=== PATIENT | female | born 1990 | race Caucasian/White ===

== ENCOUNTER 2016-07-21 00:22 | Outpatient (CLI) | payer MEDICAID ==
[~2016-07-21] VITALS: Ht 152.4 cm; Wt 66.7 kg
--- NOTE | 2016-07-21 00:51 | PN ---
Date/Time of Note Date/Time of Note DATE: 07/21/16 TIME: 00:49 OB Subjective Subjective Subjective patient c/o ctx; no LOF, no VB, good FM OB Objective Objective Objective Nml VS Abdomen- gravid, n/t FHT- + accel, no decel, mod sumit [place]- irreg ctx Abdomen: WNL Cervical Dilatation: 1cm Effacement: 50% Station: -3 Membranes: Intact Accelerations: Accelerations Present Decelerations: No Decelerations Varibility: Moderate Contractions on Admission: 6-10 Minutes Apart Intensity: Mild OB Assessment/Plan Other Assessment: 26 yo P2001 @ 39 wks, r/o labor -reassuring status -not in labor Other plan: After NST, d/c home w labor precautions CATY VAZQUEZ MD Jul 21, 2016 00:51
[2016-07-21 00:57] VITALS: Ht 152.4 cm; Wt 66.7 kg
[2016-07-21] MEDS ORDERED: FERR325C PO (00:59)
[2016-07-21] MEDS ORDERED: CALC600T5 PO (00:59)
[2016-07-21] MEDS ORDERED: PREN1TAB62 PO (00:59)
--- NOTE | 2016-07-21 01:32 | TRIAGE ---
OB Triage Datetime Report Generated by CPN: 07/21/2016 01:32 Datetime: 07/21/2016 01:00 Labor Evaluation Frequency: OCC Monitor Mode: Palpation Monitor Mode: External Duration (sec)2399: 60-80 Pattern: Normal: <= 5 Contractions in 10 Minutes Resting Tone [place]: Relaxed Heart Rate FHR Baseline Rate: 135 Monitor Mode: External US FHR Baseline Changes: No Baseline Change Variability: Moderate 6-25 bpm Accelerations: 15X15 Decelerations: None Category: Category I Comments: NST REACTIVE Datetime: 07/21/2016 00:44 Time of Arrival: 07/21/2016 00:20 EGA: 39.1 Arrived By: Wheelchair Arrived From: Home Chief Complaint: UC'S SINCE 1800 Movement: Present Contractions: Occasional Time Contractions Began: 07/20/2016 18:00 Contractions: Q10MIN Rupture of Membranes: Denies Vaginal Bleeding: None Vaginal Discharge: Denies Recent Sexual Intercouse: Denies Abdominal Trauma: Not Applicable Patient Complaints: Contractions Time Provider Notified: 07/21/2016 00:45 Provider Notified: VAZQUEZ Initial Plan: EFM, SVE, CALL OB Datetime: 07/21/2016 00:41 Assessment Type: Triage Maternal Assessment Level of Consciousness: Fully Conscious Headache: Denies Blurred Vision: No Respiratory Effort: Unlabored; Regular Rhythm; Equal Expansion Nausea/Vomiting: Denies RUQ Epigastric Pain: Denies Facial Edema: None Fall Risk Assessment History of Falling: (0) No Secondary Diagnosis: (0) No Ambulatory Aid: (0) Bedrest/Nurse Assist IV Therapy: (0) No Gait: (0) Normal/Bedrest/Immobile Mental Status: (0) Oriented to Own Ability Fall Score: 0 Fall Risk Score Definition: No Risk: No action required Vaginal Exam Dilatation (cms): 1.0 Effacement (%): 60 Station: -3 Exam By: MONCHO Datetime: 07/21/2016 00:36 Monitor Mode: Palpation Resting Tone [place]: Relaxed
== END 2016-07-21 01:15 | disposition home or self-care (01) ==
LOC: OBT 00:22 → L-D 00:23 → OBT 01:15
PROVIDERS: ATTEND Obstetrics & Gynecology
DX: O62.9 Abnormality of forces of labor, unspecified (principal); Z3A.39 39 weeks gestation of pregnancy
CPT/HCPCS: G0463

== ENCOUNTER 2016-07-24 11:57 | Inpatient (IN) | payer MEDICAID ==
[~2016-07-24] VITALS: Ht 152.4 cm; Wt 66.7 kg
[~2016-07-24 11:57] MED LIST: CALC600T5 PO; FERR325C PO; PREN1TAB62 PO
[2016-07-24] MEDS ORDERED: OXYTOCIN 30 UNITS/LR 500 ML IV PRN (14:00)
[2016-07-24] MEDS ORDERED: BUTORPHANOL 2 MG INJ IV PRN (14:00)
[2016-07-24] MEDS ORDERED: CARBOPROST 250 MCG INJ IM PRN (14:00)
[2016-07-24] MEDS ORDERED: MISOPROSTOL 200 MCG TAB PR PRN (14:00)
[2016-07-24] MEDS ORDERED: ACETAMINOPHEN/CODEINE #3 TAB PO PRN (14:00)
[2016-07-24] MEDS ORDERED: IBUPROFEN 600 MG TAB PO PRN (14:00)
[2016-07-24] MEDS ORDERED: LIDOCAINE 1% (MPF) 30 ML INJ INJ PRN (14:00)
[2016-07-24] MEDS ORDERED: METHYLERGONOVINE 0.2 MG INJ IM PRN (14:00)
[2016-07-24] MEDS ORDERED: OXYTOCIN 30 UNITS/LR 500 ML IV SCH ×2 (14:00)
[2016-07-24 14:12] VITALS: BP 121/81; PULSE 98
[2016-07-24 14:14] VITALS: Ht 152.4 cm; Wt 66.7 kg
[2016-07-24] MEDS ORDERED: LACTATED RINGER'S 1,000 ML IV PRN (14:30)
[2016-07-24] MEDS: LACTATED RINGER'S 1,000 ML IV SCH ×2 (14:51→21:42)
--- NOTE | 2016-07-24 16:22 | HP ---
Date/Time of Note Date/Time of Note DATE: 07/24/16 TIME: 16:16 OB - History Hx of Present Free Text/Dictation sent in from NST for persistent uterine contractions Last Menstrual Period: Oct 21, 2015 Estimated Due Date: Jul 27, 2016 : 3 Para: 2 Care: Good Care Ultrasounds: Normal mid trimester US Obstetrical Complications: None Medical Complications: None Past Family/Social History * Past Medical, Surgical, Family and Obstetric Histories reviewed from chart. Blood Type: O+ Rubella: immune RPR/VDRL: Negative GBS Status: Negative HBsAG: Negative OB Admission Exam Vital Signs Vital Signs Vital Signs Date Time Temp Pulse Resp B/P Pulse Ox O2 Delivery O2 Flow Rate FiO2 07/24/16 14:12 98.1 98 121/81 Room Air Physical Exam HEENT: WNL Heart: Rhythm Normal Lungs: Clear, Equal Abdomen: WNL Extremities: Normal Reflexes: Normal Cervical Dilatation: 1cm Effacement: 0% Station: -3 Membranes: Intact Contractions on Admission: < 5 Minutes Apart Date/Time Contractions Began: ? Frequency of Contractions: ? Duration: ? Intensity: Mild OB Assessment/Plan Other Assessment: term gestation labor contractions Other plan: continue to observe LEIA NIX MD Jul 24, 2016 16:22
[2016-07-24 17:44] LABS: ADD SCAN DIFF NO
[2016-07-24 17:46] LABS: BASOPHILS % 0.2 % (0.0-2.0); EOSINOPHILS # 0.1 10^3/ul (0.0-0.5); EOSINOPHILS % 1.2 % (0.0-7.0); HEMATOCRIT 34.4 % (37.0-47.0); HEMOGLOBIN 11.8 g/dl (12.0-16.0); LYMPHOCYTES # 2.3 10^3/ul (0.8-2.9); LYMPHOCYTES % 22.1 % (15.0-51.0); MEAN CORPUSCULAR HEMOGLOBIN 31.3 pg (29.0-33.0); MEAN CORPUSCULAR HGB CONC 34.3 g/dl (32.0-37.0); MEAN CORPUSCULAR VOLUME 91.2 fl (82.0-101.0); MEAN PLATELET VOLUME 11.9 fl (7.4-10.4); MONOCYTE # 0.5 10^3/ul (0.3-0.9); MONOCYTES % 4.9 % (0.0-11.0); NEUTROPHIL # 7.5 10^3/ul (1.6-7.5); PLATELET COUNT 210 10^3/UL (140-415); RED BLOOD COUNT 3.77 10^6/ul (4.20-5.40); RED CELL DISTRIBUTION WIDTH 13.6 % (11.5-14.5); WHITE BLOOD COUNT 10.5 10^3/ul (4.8-10.8)
[2016-07-24 17:59] LABS: INR 0.91; PARTIAL THROMBOPLASTIN TIME 27.5 Sec (25.0-35.0); PROTIME 12.3 Sec (12.2-14.2)
[2016-07-25] MEDS: LACTATED RINGER'S 1,000 ML IV SCH ×3 (06:29→20:25)
[2016-07-25] MEDS ORDERED: DINOPROSTONE 10 MG VAG SUPP VAG ONE (08:00)
--- NOTE | 2016-07-25 11:38 | NSTRPT ---
NST Information Datetime Report Generated by CPN: 07/25/2016 11:38 Datetime: 07/24/2016 09:08 NST Information EGA: 39.4 Test Number: 10 Time on Monitor: 07/24/2016 09:28 Time off Monitor: 07/24/2016 10:32 NST Duration (Min): 64 Reason for NST: Other Reason for NST Other: Prior low ANGELO Test and Monitor Explained: Monitor Explained; Test Explained; Verbalized Understanding Pulse: 86 Resp: 18 SBP: 116 DBP: 56 Contraction Frequency: q6-12, pt states 4/10 pain FHR Baseline : 140 Variability: Moderate 6-25bpm Accelerations: 15X15 Decelerations: Variable FHR Category: Category II NST Results: Reactive Comments: To u /s ANGELO-9.7, CEPH, FHT'S with undeterminted baseline, strip reviewed by Dr Espinal, re commending delivery. 110-Report called to Dr Andino, order received to admit to L_D. Report called to Yoselin KENNEDY, L_D. 1108-POC explained to pt _ spouse, denies further questions at this time, pt to L_D at this time. Electronically Signed By E-Signature: with User ID: [id number] Datetime: 07/20/2016 13:15 NST Information EGA: 39.0 Test Number: 9 Time on Monitor: 07/20/2016 13:32 Time off Monitor: 07/20/2016 14:04 NST Duration (Min): 32 Reason for NST: Other Reason for NST Other: Prior low ANGELO Test and Monitor Explained: Monitor Explained; Test Explained; Verbalized Understanding; Breastfee ding Info Given Pulse: 76 Resp: 18 SBP: 111 DBP: 60 Test Evaluation NST Interventions: None Patient States Movement: Present Contraction Frequency: NONE FHR Baseline : 125 Variability: Moderate 6-25bpm Accelerations: 15X15 Decelerations: Variable FHR Category: Category I NST Results: Reactive Comments: PT TO U/S. ANGELO 11.2cm. CEPHALIC. Strip reviewed by Dr. Espinal before discharge. 1410-Pt home undelivered with labor precautions, kick count instructions reviewed and follo w up NST appt given. States understanding and denies further questions at this time. Datetime: 07/17/2016 09:30 NST Information EGA: 38.4 NST Duration (Min): 35 Datetime: 07/14/2016 10:40 NST Information EGA: 38.1 NST Duration (Min): 85 Datetime: 07/12/2016 09:03 NST Information EGA: 37.6 NST Duration (Min): 26 Datetime: 07/10/2016 14:48 NST Information EGA: 37.4 NST Duration (Min): 20 Datetime: 07/07/2016 10:03 NST Information EGA: 37.1 NST Duration (Min): 20 Datetime: 07/03/2016 09:11 NST Information EGA: 36.4 NST Duration (Min): 32 Datetime: 06/27/2016 08:43 NST Information EGA: 35.5 NST Duration (Min): 37 Datetime: 06/23/2016 09:43 NST Information EGA: 35.1 Datetime: 06/23/2016 09:30 NST Duration (Min): 49
--- NOTE | 2016-07-25 11:41 | NSTRPT ---
NST Information Datetime Report Generated by CPN: 07/25/2016 11:40 Datetime: 07/20/2016 13:15 Electronically Signed By E-Signature: with User ID: [id number]
--- NOTE | 2016-07-25 21:23 | LDN ---
Date/Time of Note Date/Time of Note DATE: 07/25/16 TIME: 21:19 Delivery Summary of a viable infant over intact perineum Placenta Delivered: Spontaneously, Intact & Complete Meconium: none Perineum intact?: Yes Perineal laceration repair: small hymenal laceration was repaired with 2 0 Chromic Anesthesia type: Local Estimated blood loss: 200 Sponge & Needle done & correct: Yes All needle counts correct: Yes Any foreign bodies felt in the: No Problems: Delivery Information Sex Infant Sex: female Apgars 1 Minute: 9 5 Minute: 9 Suctioning Nose & mouth suctioned at bibiana: Yes Delee suction performed: No Umbilical Cord Umbilical cord with: 3 Vessels Cord presentations: no nuchal cord Cord Blood was obtained: Yes Mother & Baby Disposition Disposition Mom & Baby to Maternity; Good: Yes (mother and baby were recovered in good condition ) Mom transferred to: Other (maternity ) Baby to NICU: No LEIA NIX MD Jul 25, 2016 21:22
[2016-07-25] MEDS ORDERED: WITCH HAZEL/GLYCERIN PAD PR PRN (23:00)
[2016-07-25] MEDS ORDERED: ACETAMINOPHEN/CODEINE #3 TAB PO PRN ×2 (23:00)
[2016-07-25] MEDS ORDERED: BENZOCAINE 20% 56 ML SPRAY TOP PRN (23:00)
[2016-07-25] MEDS ORDERED: MISOPROSTOL 200 MCG TAB PR PRN (23:00)
[2016-07-25] MEDS ORDERED: ZOLPIDEM 5 MG TAB PO PRN (23:00)
[2016-07-25] MEDS ORDERED: LANOLIN 7 GM TUBE TOP PRN (23:00)
[2016-07-25] MEDS ORDERED: CARBOPROST 250 MCG INJ IM PRN (23:00)
[2016-07-25] MEDS ORDERED: METHYLERGONOVINE 0.2 MG INJ IM PRN (23:00)
[2016-07-25] MEDS ORDERED: DIBUCAINE 1% 30 GM OINT PR PRN (23:00)
[2016-07-25] MEDS ORDERED: OXYTOCIN 30 UNITS/LR 500 ML IV PRN (23:00)
[2016-07-25 23:15] VITALS: BP 113/61; PULSE 61; RESP 18
[2016-07-26] MEDS: IBUPROFEN 600 MG TAB PO SCH ×4 (00:39→17:50)
[2016-07-26] MEDS: LACTATED RINGER'S 1,000 ML IV* SCH ×4 (01:39→21:30)
[2016-07-26 04:00] VITALS: BP 105/56; PULSE 65; RESP 18
[2016-07-26 08:05] LABS: ADD SCAN DIFF NO
[2016-07-26 08:10] VITALS: BP 112/57; PULSE 71; RESP 14
[2016-07-26 08:42] LABS: BASOPHILS % 0.2 % (0.0-2.0); EOSINOPHILS % 0.3 % (0.0-7.0); HEMATOCRIT 32.2 % (37.0-47.0); HEMOGLOBIN 11.1 g/dl (12.0-16.0); MEAN CORPUSCULAR HGB CONC 34.5 g/dl (32.0-37.0); MEAN CORPUSCULAR VOLUME 89.9 fl (82.0-101.0); MEAN PLATELET VOLUME 11.8 fl (7.4-10.4); MONOCYTE # 0.9 10^3/ul (0.3-0.9); MONOCYTES % 6.7 % (0.0-11.0); NEUTROPHIL # 10.5 10^3/ul (1.6-7.5); NEUTROPHILS % 77.2 % (39.0-77.0); PLATELET COUNT 185 10^3/UL (140-415); RED BLOOD COUNT 3.58 10^6/ul (4.20-5.40); RED CELL DISTRIBUTION WIDTH 13.7 % (11.5-14.5); WHITE BLOOD COUNT 13.6 10^3/ul (4.8-10.8)
[2016-07-26] MEDS: SENNA/DOCUSATE NA (8.6MG/50MG) TAB PO SCH ×2 (09:42→21:28)
[2016-07-26] MEDS: MAGNESIUM HYDROXIDE 30ML CUP PO SCH ×2 (09:42→21:28)
[2016-07-26 16:00] VITALS: BP 103/59; PULSE 74; RESP 16
--- NOTE | 2016-07-26 17:55 | DS ---
Date/Time of Note Date/Time of Note home next day DATE: 07/26/16 TIME: 17:54 Obstetrical Discharge Record Final Diagnosis Final Diagnosis: Term delivered Other Final Diagnosis S/P vaginal delivery Vaginal Delivery Obstetrical Delivery: Spontaneous, Laceration, Repaired Complications Induction: Yes Condition on Discharge Physical Assessment Last Vitals: see nurses notes Voiding: Yes Bowel Movement: Yes Breast: Soft, non-tender, Filling Fundus: Firm Abdomen and Incision: soft BS + Episiotomy: NA Calf Tenderness: No Patient Condition: Good LEIA NIX MD Jul 26, 2016 17:55
[2016-07-26 19:50] VITALS: BP 111/57; PULSE 89; RESP 17
[2016-07-27] MEDS: IBUPROFEN 600 MG TAB PO SCH ×3 (00:40→12:24)
[2016-07-27 04:00] VITALS: BP 99/55; PULSE 86; RESP 17
[2016-07-27] MEDS: LACTATED RINGER'S 1,000 ML IV* SCH (06:31)
[2016-07-27 07:55] LABS: ADD SCAN DIFF NO
[2016-07-27 07:57] LABS: BASOPHIL # 0.1 10^3/ul (0.0-0.1); BASOPHILS % 0.6 % (0.0-2.0); EOSINOPHILS # 0.3 10^3/ul (0.0-0.5); EOSINOPHILS % 2.3 % (0.0-7.0); HEMATOCRIT 31.8 % (37.0-47.0); HEMOGLOBIN 10.9 g/dl (12.0-16.0); LYMPHOCYTES # 2.5 10^3/ul (0.8-2.9); LYMPHOCYTES % 23.1 % (15.0-51.0); MEAN CORPUSCULAR HEMOGLOBIN 31.4 pg (29.0-33.0); MEAN CORPUSCULAR HGB CONC 34.3 g/dl (32.0-37.0); MEAN CORPUSCULAR VOLUME 91.6 fl (82.0-101.0); MEAN PLATELET VOLUME 11.6 fl (7.4-10.4); MONOCYTE # 0.6 10^3/ul (0.3-0.9); MONOCYTES % 5.9 % (0.0-11.0); NEUTROPHIL # 7.2 10^3/ul (1.6-7.5); NEUTROPHILS % 67.5 % (39.0-77.0); PLATELET COUNT 203 10^3/UL (140-415); RED BLOOD COUNT 3.47 10^6/ul (4.20-5.40); WHITE BLOOD COUNT 10.6 10^3/ul (4.8-10.8)
[2016-07-27 08:15] VITALS: BP 118/69; PULSE 69; RESP 18
[2016-07-27] MEDS: SENNA/DOCUSATE NA (8.6MG/50MG) TAB PO SCH (09:00)
[2016-07-27] MEDS ORDERED: VARICELLA VACCINE LIVE/PF 1,350 UNIT/0.5 ML ML SC* ONE (09:00)
[2016-07-27] MEDS ORDERED: DIPHTH/TET/ACEL PERTUSS (ADULT) 0.5 ML VIAL IM* ONE (09:00)
[2016-07-27] MEDS: MAGNESIUM HYDROXIDE 30ML CUP PO SCH (09:00)
[2016-07-27] MEDS ORDERED: MEASLES,MUMPS,RUBELLA VACCINE INJ SC* ONE (09:00)
--- NOTE | 2016-07-27 13:57 | PD.PPDC ---
[employer] Discharge Instruction Provider Information Physician Information 26 y/o female had vaginal delivery Diagnosis Final Diagnosis: S/P vaginal delivery Condition Patient Condition: Good Diet Diet: Resume Regular Diet Activity/Restrictions Activity: Normal Activity May Shower Restrictions: Nothing in the Vagina Return to Work or School: Sep 11, 2016 Follow-up Follow-up with Physician: 4, Week/Weeks (in clinic) Return to clinic for OB Instructions: Breast Tenderness Depression LEIA NIX MD Jul 27, 2016 13:57
[2016-07-27] MEDS ORDERED: IBUP-1542 PO (13:58)
== END 2016-07-27 15:15 | disposition home or self-care (01) | DRG 989 ==
LOC: L-D 12:50 → PP1 07-25 23:09 → EDSTATUS 08-07 11:49
PROVIDERS: ADMIT Obstetrics & Gynecology; ATTEND Obstetrics & Gynecology
PROC: 10E0XZZ Delivery of Products of Conception, External Approach (ICD-10-PCS; principal; 2016-07-25)
PROC: 0UQKXZZ Repair Hymen, External Approach (ICD-10-PCS; 2016-07-25)
DX: O70.0 First degree perineal laceration during delivery (principal); Z37.0 Single live birth; Z3A.39 39 weeks gestation of pregnancy
CPT/HCPCS: 85025; 85610; 85730; 86592; 86900; 86901; 87340; 90715; 90716; J2590; J7120

== ENCOUNTER 2019-01-08 22:13 | Emergency (ER) | payer MEDICAID ==
[~2019-01-08] VITALS: Ht 149.9 cm; Wt 63.0 kg
[~2019-01-08 22:13] MED LIST changes: +IBUP-1542 PO; +IBUP800T48 PO
[2019-01-08 22:23] VITALS: Ht 149.9 cm; Wt 63.0 kg
[2019-01-09] MEDS ORDERED: KETOROLAC 30 MG INJ IM STA (01:00)
[2019-01-09] MEDS ORDERED: POTASSIUM CHLORIDE (SR) 20 MEQ TAB PO STA (02:10)
[2019-01-09] MEDS ORDERED: ONDANSETRON (ODT) 4 MG TAB ODT STA (02:10)
[2019-01-09] MEDS ORDERED: FAMOTIDINE 20 MG TAB PO ONE (02:30)
[2019-01-09 03:06] VITALS: BP 138/81; PULSE 56; RESP 18
== END 2019-01-09 03:07 | disposition home or self-care (01) ==
LOC: FTE 22:13
DX: N83.202 Unspecified ovarian cyst, left side (principal)
CPT/HCPCS: 76775; 76856; 80053; 81003; 81025; 82150; 83690; 85025; 87086; J1885; Z7610; 96372